=== PATIENT | female | born 1945 | race Caucasian/White ===

== ENCOUNTER 2024-11-08 09:29 | Inpatient (IN) | payer MEDICARE, OTHER ==
[~2024-11-08] VITALS: Ht 154.9 cm; Wt 101.2 kg
[~2024-11-08 09:29] MED LIST: VANCOMYCIN 1 GM in IV D5W 250ml IV SCH
[2024-11-08] MEDS ORDERED: FENTANYL PF 250MCG/5ML AMPUL ONE (12:22)
[2024-11-08] MEDS ORDERED: ROCURONIUM BROMIDE 50 MG/5 ML ONE (12:24)
[2024-11-08] MEDS ORDERED: OXYMETAZOLINE HCL NASAL SPRAY 30 ML BOTTLE NS ONE (12:25)
[2024-11-08] MEDS ORDERED: BUPIVACAINE 0.5 % PF 150 MG/30 ML VIAL ONE (12:25)
[2024-11-08] MEDS ORDERED: LIDOCAINE 2%-EPI 1:100,000 30 ML VIAL ONE (12:25)
[2024-11-08] MEDS ORDERED: VANCOMYCIN 1 GM VIAL ONE ×2 (12:25→13:44)
[2024-11-08] MEDS ORDERED: dexaMETHasone SOD PHOSPHATE 2 ML ONE (12:26)
[2024-11-08] MEDS ORDERED: POLYMYXIN B SULFATE 500,000 UNITS ONE (13:44)
[2024-11-08] MEDS ORDERED: GELATIN SPONGE,ABSORBABLE 1 SPONGE SPONGE TP ONE ×2 (13:45→16:33)
[2024-11-08] MEDS ORDERED: IV NS 0.9% 1,000 ML IV PRN (18:30)
[2024-11-08] MEDS ORDERED: ACETAMINOPHEN 325 MG TABLET PO PRN ×2 (18:30→19:00)
[2024-11-08] MEDS ORDERED: ONDANSETRON HCL/PF 4 MG/2 ML VIAL IVP PRN (19:00)
[2024-11-08] MEDS ORDERED: Z GUARD REMEDY 4 OZ OINT TP PRN (19:00)
[2024-11-08] MEDS ORDERED: MAGNESIUM HYDROXIDE 30 ML UDC PO PRN (19:00)
[2024-11-08] MEDS: NITROGLYCERIN 0.4 MG/TAB BOTTLE SL ONE (19:08)
[2024-11-08 20:02] LABS: PLATELET COUNT (AUTO) 200 K/uL (150-450); RED BLOOD CELL COUNT(AUTO) 4.19 MIL/uL (4.0-5.2); RED CELL DISTRIBUTION WIDTH 13.3 % (11.5-15.0); WHITE BLOOD COUNT (AUTO) 9.4 K/uL (4.3-11.0)
[2024-11-08] MEDS: ZOSYN IVPB 3.375 G in IV D5W 50ml IV SCH (20:14)
[2024-11-08 20:21] LABS: CALCIUM, SERUM 8.2 mg/dL (8.5-10.1); CREATININE 0.6 mg/dL (0.6-1.3); SODIUM SERUM 139 mmol/L (136-145); UREA NITROGEN, BLOOD 18 mg/dL (7-18)
[2024-11-08 20:22] LABS: ASPARTATE AMINOTRANSFERASE 16 U/L (15-37); TOTAL PROTEIN, SERUM 7.0 g/dL (6.4-8.2)
[2024-11-08] MEDS: HYDROMORPHONE 1 MG/1 ML DISP.SYRIN IV PRN (20:53)
[2024-11-09] VITALS: BP 110/72; TEMP 98.1; O2SAT 97
[2024-11-09] MEDS: VANCOMYCIN 1 GM in IV D5W 250ml IV SCH (00:27)
[2024-11-09 04:00] VITALS: BP 127/69; TEMP 98.1; O2SAT 98
[2024-11-09 07:15] LABS: PLATELET COUNT (AUTO) 213 K/uL (150-450); RED BLOOD CELL COUNT(AUTO) 3.89 MIL/uL (4.0-5.2); RED CELL DISTRIBUTION WIDTH 13.2 % (11.5-15.0); WHITE BLOOD COUNT (AUTO) 8.2 K/uL (4.3-11.0)
[2024-11-09 08:00] VITALS: BP 119/72; TEMP 98.2; O2SAT 97
[2024-11-09 08:16] LABS: LDL 95.0 mg/dL (0-99)
[2024-11-09 08:17] LABS: CALCIUM, SERUM 8.5 mg/dL (8.5-10.1); CREATININE 0.6 mg/dL (0.6-1.3); PHOSPHORUS 3.7 mg/dL (2.5-4.9); SODIUM SERUM 139.0 mmol/L (136-145); UREA NITROGEN, BLOOD 16.0 mg/dL (7-18)
[2024-11-09] MEDS: PANTOPRAZOLE 40 MG TABLET.DR PO SCH (08:32)
[2024-11-09 12:00] VITALS: BP 112/55; TEMP 97.9; O2SAT 97
[2024-11-09 16:00] VITALS: BP 106/53; TEMP 98.6; O2SAT 94; O2SAT 95
[2024-11-09] MEDS ORDERED: IV NS 0.9% 250 ML IV ONE (17:54)
[2024-11-09] MEDS ORDERED: IOHEXOL-350 100 ML VIAL IV ONE (17:54)
[2024-11-09 20:25] VITALS: BP 145/83; TEMP 98.2; O2SAT 95
[2024-11-09] MEDS ORDERED: ATORVASTATIN 10 MG TABLET PO SCH (22:00)
== END 2024-11-09 21:25 | disposition home or self-care (01) | DRG 142 ==
LOC: DS 09:29 → MED 14:22 → TELE 18:56
PROVIDERS: ADMIT Nurse Practitioner Family; ATTEND Nurse Practitioner Family
PROC: 0NSR04Z Reposition Maxilla with Internal Fixation Device, Open Approach (ICD-10-PCS; principal; 2024-11-08 11:55)
PROC: 0NSV04Z Reposition Left Mandible with Internal Fixation Device, Open Approach (ICD-10-PCS; principal; 2024-11-08 11:55)
PROC: 0NUR07Z Supplement Maxilla with Autologous Tissue Substitute, Open Approach (ICD-10-PCS; principal; 2024-11-08 11:55)
PROC: 0NST04Z Reposition Right Mandible with Internal Fixation Device, Open Approach (ICD-10-PCS; principal; 2024-11-08 11:55)
PROC: 0NBT0ZZ Excision of Right Mandible, Open Approach (ICD-10-PCS; principal; 2024-11-08 11:55)
PROC: 0NUV07Z Supplement Left Mandible with Autologous Tissue Substitute, Open Approach (ICD-10-PCS; principal; 2024-11-08 11:55)
PROC: 0NBV0ZZ Excision of Left Mandible, Open Approach (ICD-10-PCS; principal; 2024-11-08 11:55)
PROC: 0NUT07Z Supplement Right Mandible with Autologous Tissue Substitute, Open Approach (ICD-10-PCS; principal; 2024-11-08 11:55)
PROC: 0NBR0ZZ Excision of Maxilla, Open Approach (ICD-10-PCS; principal; 2024-11-08 11:55)
DX: S02.40CA Maxillary fracture, right side, initial encounter for closed fracture (principal); S02.609B Fracture of mandible, unspecified, initial encounter for open fracture; S02.40DA Maxillary fracture, left side, initial encounter for closed fracture; M27.2 Inflammatory conditions of jaws; D16.4 Benign neoplasm of bones of skull and face; I10 Essential (primary) hypertension; M94.0 Chondrocostal junction syndrome [Tietze]; X58.XXXA Exposure to other specified factors, initial encounter; Y92.9 Unspecified place or not applicable
CPT/HCPCS: 36415; 71045-TC; 80048-TC; 80053-TC; 80061-TC; 83735-TC; 84100-TC; 84484-TC; 85025-TC; 87081-TC; 88305-TC; 88311-TC; 93307-TC; A4223; A4338; C1713; G0378; J0461; J1100; J1171; J1885; J2543; J2704; J2765; J3010; J3373; J3490; J7030; J7050; J7060; Q9967